=== PATIENT | male | born 1990 | race Caucasian/White ===

== ENCOUNTER 2018-11-14 23:15 | Emergency (ER) | payer SELFPAY ==
[~2018-11-14] VITALS: Ht 162.6 cm; Wt 56.7 kg
[2018-11-14 23:41] VITALS: Ht 162.6 cm; Wt 56.7 kg
[2018-11-15 01:28] VITALS: BP 138/75
== END 2018-11-15 01:28 | disposition home or self-care (01) ==
LOC: ED 23:15
DX: S39.012A Strain of muscle, fascia and tendon of lower back, initial encounter (principal); X58.XXXA Exposure to other specified factors, initial encounter; Y93.89 Activity, other specified; Y92.89 Other specified places as the place of occurrence of the external cause; Y99.8 Other external cause status
CPT/HCPCS: J1885